=== PATIENT | male | born 2000 | race Hispanic/Latino ===

== ENCOUNTER 2020-10-07 06:35 | Emergency (ER) | payer SELFPAY ==
[~2020-10-07] VITALS: Ht 160 cm; Wt 93.0 kg
[2020-10-07] MEDS ORDERED: ACETAMINOPHEN 325 MG TAB ONE (06:55)
[2020-10-07] MEDS ORDERED: ACETAMINOPHEN 325 MG TAB PO ONE (07:15)
[2020-10-07 07:22] LABS: BASOPHILS % 0.1 % (0.0-1.0); HEMATOCRIT 44.4 % (38.2-49.6); HEMOGLOBIN 15.2 g/dL (14.0-18.0); LYMPHOCYTES # (AUTO) 1.3 (1.0-3.2); LYMPHOCYTES % 12.6 % (18.0-39.1); MEAN CORPUSCULAR HEMOGLOBIN 30.2 pg (28-32); MEAN CORPUSCULAR HGB CONC 34.2 g/dL (31-35); MEAN CORPUSCULAR VOLUME 88.3 fL (81-99); MONOCYTES # (AUTO) 0.4 (0.2-0.8); MONOCYTES % 3.7 % (4.4-11.3); NEUTROPHILS # (AUTO) 8.5 (2.1-6.9); NEUTROPHILS % 82.8 % (38.7-80.0); PLATELET COUNT 264 x10e3/uL (140-360); RED BLOOD COUNT 5.03 x10e6/uL (4.3-5.7); RED CELL DISTRIBUTION WIDTH 12.6 % (11.7-14.4)
[2020-10-07 07:47] LABS: ALANINE AMINOTRANSFERASE 82 IU/L (0-55); ALBUMIN 3.1 g/dL (3.5-5.0); ALBUMIN/GLOBULIN RATIO 0.7 (0.8-2.0); ALKALINE PHOSPHATASE 46 IU/L (40-150); ANION GAP 16.6 mmol/L (8-16); BLOOD UREA NITROGEN 10 mg/dL (7-26); BUN/CREATININE RATIO 13 (6-25); CALCIUM 8.6 mg/dL (8.4-10.2); CARBON DIOXIDE 24 mmol/L (22-29); CHLORIDE 102 mmol/L (98-107); CREATINE KINASE 417 IU/L (30-200); EST GLOMERULAR FILTRATION RATE > 60 ML/MIN (60-); GLUCOSE 118 mg/dL (74-118); POTASSIUM 3.6 mmol/L (3.5-5.1); SODIUM 139 mmol/L (136-145)
[2020-10-07] MEDS ORDERED: DEXAMETHASONE SOD PHOS 10 MG/1 ML VIAL IV ONE (08:00)
[2020-10-07] MEDS ORDERED: CEFTRIAXONE SOD 1 GM VIAL IM ONE (08:00)
[2020-10-07] MEDS ORDERED: ENOXAPARIN 30 MG/0.3 ML SYR SC ONE (08:21)
[2020-10-07] MEDS ORDERED: ENOXAPARIN 30 MG/0.3 ML SYR SC SCH (09:00)
== END 2020-10-07 12:25 | disposition other institution (70) ==
LOC: ER 06:52
DX: U07.1 COVID-19 (principal); R50.9 Fever, unspecified; R05 Cough; R06.00 Dyspnea, unspecified; R53.1 Weakness
CPT/HCPCS: 36415; 71045; 80053; 82550; 82553; 84484; 85025; 85379; 99285; J0696; J1100; J1650; U0002